=== PATIENT | female | born 1995 | race Caucasian/White ===

== ENCOUNTER 2016-11-26 11:20 | Outpatient (CLI) | payer OTHER ==
[~2016-11-26] VITALS: Ht 157.5 cm; Wt 69.3 kg
[~2016-11-26 11:20] MED LIST: PRENAT PO
[2016-11-26 11:39] VITALS: BP 120/75; PULSE 75; RESP 18; Ht 157.5 cm; Wt 69.3 kg
[2016-11-26] MEDS ORDERED: LACTATED RINGER'S 1,000 ML IV ONE (12:00)
[2016-11-26] MEDS ORDERED: TERBUTALINE 1 MG/ML INJ SC ONE (12:00)
--- NOTE | 2016-11-26 15:40 | TRIAGE ---
OB Triage Datetime Report Generated by CPN: 11/26/2016 15:40 Datetime: 11/26/2016 12:57 Monitor Mode: External Resting Tone [place]: Relaxed Contraction Comments: No UC for last 30 minutes Heart Rate FHR Baseline Rate: 130 Monitor Mode: External US FHR Baseline Changes: No Baseline Change Variability: Moderate 6-25 bpm Accelerations: 15X15 Decelerations: None Category: Category I Datetime: 11/26/2016 12:00 Labor Evaluation Frequency: 2-4 Monitor Mode: External Duration (sec)2399: 50-90 Quality: Moderate Pattern: Normal: <= 5 Contractions in 10 Minutes Resting Tone [place]: Relaxed Heart Rate FHR Baseline Rate: 120 Monitor Mode: External US FHR Baseline Changes: No Baseline Change Variability: Minimal - Undetectable to <=5 bpm Accelerations: 15X15 Decelerations: None Category: Category II Datetime: 11/26/2016 11:45 Assessment Type: Triage Maternal Assessment Level of Consciousness: Fully Conscious DTR's/Clonus: DTRs 2+; No Clonus Headache: Denies Blurred Vision: No Respiratory Effort: Unlabored; Regular Rhythm; Equal Expansion Breath Sounds, Left: Clear and Equal Breath Sounds, Right: Clear and Equal Nausea/Vomiting: Denies RUQ Epigastric Pain: Denies Lower Extremities Edema: Bilateral Lower Extremities Degree: 1+ Upper Extremities Edema: None Degree: None Facial Edema: None Fall Risk Assessment History of Falling: (0) No Secondary Diagnosis: (0) No Ambulatory Aid: (0) Bedrest/Nurse Assist IV Therapy: (0) No Gait: (0) Normal/Bedrest/Immobile Mental Status: (0) Oriented to Own Ability Fall Score: 0 Fall Risk Score Definition: No Risk: No action required Datetime: 11/26/2016 11:43 Vaginal Exam Dilatation (cms): 0.0 Effacement (%): 0 Station: -3 Exam By: TM Datetime: 11/26/2016 11:40 Time of Arrival: 11/26/2016 11:19 EGA: 39.5 Arrived By: Wheelchair Arrived From: Emergency Dept Chief Complaint: UC Movement: Present Contractions: Regular Time Contractions Began: 11/26/2016 08:00 Rupture of Membranes: Denies Vaginal Bleeding: None Vaginal Discharge: Denies Recent Sexual Intercouse: Denies Abdominal Trauma: Not Applicable Patient Complaints: Contractions Time Provider Notified: 11/26/2016 11:47 Provider Notified: Chacorta Initial Plan: NST, IV hydration, Terbutaline 0.25mg SQ x1 Datetime: 11/26/2016 11:37 Stage of : OB Triage Datetime: 11/03/2016 20:03 Fall Score: 0 Fall Risk Score Definition: No Risk: No action required Datetime: 11/03/2016 18:51 Fall Score: 0 Fall Risk Score Definition: No Risk: No action required Datetime: 11/03/2016 18:44 EGA: 36.3
--- NOTE | 2016-11-26 17:34 | PN ---
DATE: The patient is a 21-year-old with contractions, but no vaginal bleeding. Positive movem ent. Vital signs stable. NST is reactive. ASSESSMENT: Intrauterine 39 weeks, vitals stable. The patient can be discharged home. F ollow up with her OB within 1 week. ER precautions given. Dictated By: MINOR MERCHANT MD /RIRI Conf#: [id number] DID#: [id number]
== END 2016-11-26 14:08 | disposition home or self-care (01) ==
LOC: OBT 11:20 → L-D 11:21 → OBT 14:08
PROVIDERS: ATTEND Obstetrics & Gynecology
DX: O62.9 Abnormality of forces of labor, unspecified (principal); Z3A.39 39 weeks gestation of pregnancy
CPT/HCPCS: 36415; 96360; 96372; J3105; J7120; Z7500; G0463

== ENCOUNTER 2016-12-04 00:09 | Inpatient (IN) | payer OTHER ==
[~2016-12-04] VITALS: Ht 158.8 cm; Wt 69.5 kg
[2016-12-04 00:27] VITALS: BP 120/73; PULSE 77; RESP 18
[2016-12-04] MEDS: LACTATED RINGER'S 1,000 ML IV SCH ×2 (00:54→03:54)
--- NOTE | 2016-12-04 00:57 | TRIAGE ---
OB Triage Datetime Report Generated by CPN: 12/04/2016 00:57 Datetime: 12/04/2016 00:31 Vaginal Exam Dilatation (cms): 2.0 Effacement (%): 60 Station: -2 Exam By: SHAKEEL Stevenson Membrane Status: Intact Vaginal Bleeding: None Cervix, Consistency: Moderate Cervix, Position: Posterior Presentation 'A': Cephalic Datetime: 12/04/2016 00:19 Stage of : OB Triage Assessment Type: Triage Maternal Assessment Level of Consciousness: Fully Conscious DTR's/Clonus: DTRs 2+; No Clonus Headache: Denies Blurred Vision: No Respiratory Effort: Unlabored; Regular Rhythm; Equal Expansion Breath Sounds, Left: Clear and Equal Breath Sounds, Right: Clear and Equal Nausea/Vomiting: Hx of Nausea/Vomiting (Annotations: Hx nausea. Denies at this time.) RUQ Epigastric Pain: Denies Lower Extremities Edema: None Degree: None Upper Extremities Edema: None Degree: None Facial Edema: None Temperature Route: Oral Fall Risk Assessment History of Falling: (0) No Secondary Diagnosis: (0) No Ambulatory Aid: (0) Bedrest/Nurse Assist IV Therapy: (0) No Gait: (0) Normal/Bedrest/Immobile Mental Status: (0) Oriented to Own Ability Fall Score: 0 Fall Risk Score Definition: No Risk: No action required Datetime: 12/04/2016 00:18 Maternal Assessment Level of Consciousness: Fully Conscious Headache: Denies Blurred Vision: No Nausea/Vomiting: Denies RUQ Epigastric Pain: Denies Facial Edema: None Labor Evaluation Frequency: plpaced Monitor Mode: External Heart Rate Monitor Mode: External US Comments: [id number] Pain Assessment Pain Scale: 7 Pain Presence: Intermittent Pain Type: Contraction Pain Location: Abdomen Datetime: 12/04/2016 00:12 Time of Arrival: 12/04/2016 00:05 EGA: 39.3 Arrived By: Wheelchair Arrived From: Home Chief Complaint: UCs q5mins Movement: Present Contractions: Regular Time Contractions Began: 12/03/2016 18:00 Contractions: q5mins Rupture of Membranes: Denies Vaginal Bleeding: None Vaginal Discharge: Present Abdominal Trauma: Not Applicable Patient Complaints: Contractions; Cramping; Back Pain Time Provider Notified: 12/04/2016 00:35 Provider Notified: Dr Whatley Initial Plan: EFM x2, VE Datetime: 11/26/2016 11:45 Fall Score: 0 Fall Risk Score Definition: No Risk: No action required Datetime: 11/26/2016 11:40 EGA: 39.5 Datetime: 11/03/2016 20:03 Fall Score: 0 Fall Risk Score Definition: No Risk: No action required Datetime: 11/03/2016 18:51 Fall Score: 0 Fall Risk Score Definition: No Risk: No action required Datetime: 11/03/2016 18:44 EGA: 36.3
[2016-12-04] MEDS ORDERED: LIDOCAINE 1% (MPF) 30 ML INJ INJ PRN (01:00)
[2016-12-04] MEDS ORDERED: CARBOPROST 250 MCG INJ IM PRN ×2 (01:00→15:00)
[2016-12-04] MEDS ORDERED: METHYLERGONOVINE 0.2 MG INJ IM PRN ×2 (01:00→15:00)
[2016-12-04] MEDS ORDERED: OXYTOCIN 30 UNITS/LR 500 ML IV SCH ×3 (01:00)
[2016-12-04] MEDS ORDERED: OXYTOCIN 30 UNITS/LR 500 ML IV PRN ×2 (01:00→15:00)
[2016-12-04] MEDS ORDERED: LACTATED RINGER'S 1,000 ML IV PRN (01:00)
[2016-12-04] MEDS ORDERED: BUTORPHANOL 2 MG INJ IV PRN (01:00)
[2016-12-04] MEDS ORDERED: MISOPROSTOL 200 MCG TAB PR PRN ×2 (01:00→15:00)
[2016-12-04] MEDS ORDERED: IBUPROFEN 600 MG TAB PO PRN (01:00)
[2016-12-04 02:35] LABS: BASOPHIL # 0.1 10^3/ul (0.0-0.1); BASOPHILS % 0.7 % (0.0-2.0); EOSINOPHILS # 0.1 10^3/ul (0.0-0.5); HEMATOCRIT 41.5 % (37.0-47.0); HEMOGLOBIN 14.3 g/dl (12.0-16.0); LYMPHOCYTES # 1.7 10^3/ul (0.8-2.9); LYMPHOCYTES % 15.2 % (15.0-51.0); MEAN CORPUSCULAR HEMOGLOBIN 32.3 pg (29.0-33.0); MEAN CORPUSCULAR HGB CONC 34.3 g/dl (32.0-37.0); MEAN CORPUSCULAR VOLUME 94.1 fl (82.0-101.0); MEAN PLATELET VOLUME 10.1 fl (7.4-10.4); MONOCYTE # 0.8 10^3/ul (0.3-0.9); MONOCYTES % 6.6 % (0.0-11.0); NEUTROPHIL # 8.8 10^3/ul (1.6-7.5); NEUTROPHILS % 76.5 % (39.0-77.0); PLATELET COUNT 191 10^3/UL (140-440); RED BLOOD COUNT 4.41 10^6/ul (4.20-5.40); RED CELL DISTRIBUTION WIDTH 13.2 % (11.5-14.5); UNCORRECTED WBC 11.5 10^3/ul (4.8-10.8); WHITE BLOOD COUNT 11.5 10^3/ul (4.8-10.8)
[2016-12-04 02:46] LABS: INR 0.85; PARTIAL THROMBOPLASTIN TIME 28.6 Sec (25.0-35.0); PROTIME 11.6 Sec (12.2-14.2); PT RATIO 0.9
[2016-12-04 02:52] LABS: CONDITION 1
[2016-12-04] MEDS ORDERED: FENTAnyl 2MCG/ML-ROPIV 0.2% 100 ML ONE (03:01)
[2016-12-04] MEDS ORDERED: NALOXONE (0.4 MG/ML) INJ IV PRN (03:35)
[2016-12-04] MEDS ORDERED: FENTAnyl 2MCG/ML-ROPIV 0.2% 100 ML BAG EPI SCH (03:35)
--- NOTE | 2016-12-04 11:58 | HP ---
Date/Time of Note Date/Time of Note DATE: 12/04/16 TIME: 11:57 OB - History Hx of Present Free Text/Dictation at term in labor Care: Good Care Ultrasounds: Normal mid trimester US Obstetrical Complications: None Medical Complications: None Past Family/Social History * Past Medical, Surgical, Family and Obstetric Histories reviewed from chart. OB Admission Exam Vital Signs Vital Signs Vital Signs Date Time Temp Pulse Resp B/P Pulse Ox O2 Delivery O2 Flow Rate FiO2 12/04/16 00:27 97.7 77 18 120/73 Room Air Physical Exam HEENT: WNL Heart: Rhythm Normal Lungs: Clear, Equal Abdomen: WNL Extremities: Normal Reflexes: Normal Last 72 hours Lab Results CBC & BMP 12/04/16 00:48 OB Assessment/Plan Reason for admission: active labor Plan: Expectant Management DARRELL LEWIS MD Dec 04, 2016 11:58
--- NOTE | 2016-12-04 11:59 | LDN ---
Date/Time of Note Date/Time of Note DATE: 12/04/16 TIME: 11:58 Delivery Summary nsd w/o complications Placenta Delivered: Spontaneously Meconium: none Perineum intact?: No Perineal laceration: 1 Anesthesia type: Epidural Estimated blood loss: 350 Sponge & Needle done & correct: Yes All needle counts correct: Yes Any foreign bodies felt in the: Yes Problems: DARRELL LEWIS MD Dec 04, 2016 11:59
[2016-12-04 14:15] VITALS: BP 119/59; PULSE 20; RESP 20
[2016-12-04] MEDS ORDERED: MAGNESIUM HYDROXIDE 30ML CUP PO PRN (15:00)
[2016-12-04] MEDS ORDERED: ZOLPIDEM 5 MG TAB PO PRN (15:00)
[2016-12-04] MEDS ORDERED: ACETAMINOPHEN/CODEINE #3 TAB PO PRN (15:00)
[2016-12-04] MEDS ORDERED: LANOLIN 7 GM TUBE TOP PRN (15:00)
[2016-12-04] MEDS ORDERED: ACETAMINOPHEN 325 MG TAB PO PRN (15:00)
[2016-12-04] MEDS ORDERED: BENZOCAINE 20% 56 ML SPRAY TOP PRN (15:00)
[2016-12-04] MEDS ORDERED: DIPHENHYDRAMINE 25 MG CAP PO PRN (15:00)
[2016-12-04] MEDS ORDERED: WITCH HAZEL/GLYCERIN PAD PR PRN (15:00)
[2016-12-04] MEDS: OXYTOCIN 30 UNITS/LR 500 ML IV SCH ×3 (15:58→22:00)
[2016-12-04 16:00] VITALS: BP 115/59; PULSE 87; RESP 18
[2016-12-04] MEDS: IBUPROFEN 800 MG TAB PO SCH ×2 (17:27→23:18)
[2016-12-04 19:45] VITALS: BP 117/63; PULSE 99; RESP 18
[2016-12-04] MEDS: LACTATED RINGER'S 1,000 ML IV* SCH (21:11)
[2016-12-04] MEDS: SENNA/DOCUSATE NA (8.6MG/50MG) TAB PO PRN (21:18)
[2016-12-05 04:23] VITALS: BP 113/63; PULSE 65; RESP 18
[2016-12-05] MEDS: IBUPROFEN 800 MG TAB PO SCH ×4 (05:59→23:14)
[2016-12-05] MEDS: LACTATED RINGER'S 1,000 ML IV* SCH (06:33)
[2016-12-05 07:52] LABS: BASOPHILS % 0.3 % (0.0-2.0); EOSINOPHILS # 0.2 10^3/ul (0.0-0.5); HEMOGLOBIN 11.6 g/dl (12.0-16.0); LYMPHOCYTES # 1.6 10^3/ul (0.8-2.9); LYMPHOCYTES % 10.7 % (15.0-51.0); MEAN CORPUSCULAR HEMOGLOBIN 33.2 pg (29.0-33.0); MEAN CORPUSCULAR HGB CONC 35.3 g/dl (32.0-37.0); MEAN CORPUSCULAR VOLUME 93.9 fl (82.0-101.0); MEAN PLATELET VOLUME 9.6 fl (7.4-10.4); MONOCYTE # 0.8 10^3/ul (0.3-0.9); NEUTROPHIL # 12.8 10^3/ul (1.6-7.5); PLATELET COUNT 150 10^3/UL (140-440); RED BLOOD COUNT 3.51 10^6/ul (4.20-5.40); RED CELL DISTRIBUTION WIDTH 13.4 % (11.5-14.5); UNCORRECTED WBC 15.4 10^3/ul (4.8-10.8); WHITE BLOOD COUNT 15.4 10^3/ul (4.8-10.8)
[2016-12-05 07:55] LABS: CONDITION 1
[2016-12-05 08:00] VITALS: BP 106/74; PULSE 76; RESP 20
[2016-12-05] MEDS: SENNA/DOCUSATE NA (8.6MG/50MG) TAB PO PRN (09:08)
[2016-12-05] MEDS ORDERED: INFLUENZA VIRUS VACCINE 0.5 ML SYG IM* ONE (10:00)
[2016-12-05 15:30] VITALS: BP 115/60; PULSE 84; RESP 20
--- NOTE | 2016-12-05 16:57 | PN ---
Date/Time of Note Date/Time of Note DATE: 12/05/16 TIME: 16:57 Assessment/Plan VTE Prophylaxis VTE Prophylaxis Intervention: ambulation Lines/Catheters IV Catheter Type (from Nrsg): Peripheral IV Assessment/Plan Assessment/Plan ppd1 pt doing well exam wnl continue care Exam/Review of Systems Vital Signs Vitals Vital Signs Date Time Temp Pulse Resp B/P Pulse Ox O2 Delivery O2 Flow Rate FiO2 12/05/16 15:30 98.0 84 20 115/60 Room Air Intake and Output 12/04/16 12/04/16 12/05/16 15:00 23:00 07:00 Intake Total 1350 ml 730 ml Output Total 1840 ml 1050 ml Balance -490 ml -320 ml Results Result Diagram: 12/05/16 0646 Results 24 hrs Laboratory Tests Test 12/05/16 06:46 Basophils # 0.0 Basophils % 0.3 Eosinophils # 0.2 Eosinophils % 1.0 Hematocrit 33.0 #L Hemoglobin 11.6 L Lymphocytes # 1.6 Lymphocytes % 10.7 L Mean Corpuscular Hemoglobin 33.2 H Mean Corpuscular Hemoglobin Concent 35.3 Mean Corpuscular Volume 93.9 Mean Platelet Volume 9.6 Monocytes # 0.8 Monocytes % 5.0 Neutrophils # 12.8 H Neutrophils % 83.0 H Nucleated Red Blood Cells # 0.0 Nucleated Red Blood Cells % 0.0 Platelet Count 150 # Red Blood Count 3.51 #L Red Cell Distribution Width 13.4 White Blood Count 15.4 #H Medications Medications Current Medications Ibuprofen (Motrin) 800 mg Q6 PO Last administered on 12/05/16 11:42; Admin Dose 800 MG; Start 12/04/16 at 18:00 Acetaminophen/ Codeine Phosphate (Tylenol No.3) 2 tab Q4H PRN PO PAIN LEVEL 6- 10 Last administered on 12/04/16 19:52; Admin Dose 2 TAB; Start 12/04/16 at 15: 00 Diphenhydramine HCl (Benadryl) 25 mg Q6H PRN PO PRURITUS; Start 12/04/16 at 15: 00 Zolpidem Tartrate (Ambien) 10 mg QHS PRN PO INSOMNIA; Start 12/04/16 at 15:00 Senna/Docusate Sodium (Senokot-S) 1 tab BID PRN PO CONSTIPATION Last administered on 12/05/16t 09:08; Admin Dose 1 TAB; Start 12/04/16 at 15:00 Magnesium Hydroxide (Milk Of Mag) 30 ml Q12H PRN PO CONSTIPATION; Start at 15:00 Measles/Mumps/ Rubella Vaccine Live (Mmr Ii Vaccine) 0.5 ml ONCE ONCE SC* ; Start 12/06/16 at 09:00; Stop 12/06/16 at 09:01 Diphtheria/ Tetanus/Acell Pertussis (Adacel) 0.5 ml ONCE ONCE IM* ; Start at 09:00; Stop 12/06/16 at 09:01 Varicella Virus Vaccine Live (Varivax Vaccine With Diluent) 1,350 unit ONCE ONCE SC* ; Start 12/06/16 at 09:00; Stop 12/06/16 at 09:01 Acetaminophen 650 mg 650 mg Q4H PRN PO ELEVATED TEMPERATURE; Start 12/04/16 at 15:00 Oxytocin/Lactated Ringer's 500 ml @ 0 mls/hr ONCE PRN IV For Hemorrhage Management; Start 12/04/16 at 15:00 Methylergonovine Maleate (Methergine) 0.2 mg ONCE PRN IM VAGINAL BLEEDING; Start 12/04/16 at 15:00 Carboprost Tromethamine (Hemabate) 250 mcg ONCE PRN IM VAGINAL BLEEDING; Start 12/04/16 at 15:00 Misoprostol (Cytotec) 1,[address] VAGINAL BLEEDING; Start 12/04/16 at 15:00 MINOR MERCHANT MD Dec 05, 2016 16:57
[2016-12-05 19:40] VITALS: BP 114/57; PULSE 80; RESP 18
[2016-12-06 03:46] VITALS: BP 114/57; PULSE 73; RESP 18
[2016-12-06] MEDS: IBUPROFEN 800 MG TAB PO SCH ×2 (05:41→11:41)
[2016-12-06 08:20] VITALS: BP 113/56; PULSE 87; RESP 20
[2016-12-06] MEDS ORDERED: MEASLES,MUMPS,RUBELLA VACCINE INJ SC* ONE (09:00)
[2016-12-06] MEDS ORDERED: VARICELLA VACCINE LIVE/PF 1,350 UNIT/0.5 ML ML SC* ONE (09:00)
[2016-12-06] MEDS ORDERED: DIPHTH/TET/ACEL PERTUSS (ADULT) 0.5 ML VIAL IM* ONE (09:00)
--- NOTE | 2016-12-06 14:03 | DS ---
Date/Time of Note Date/Time of Note DATE: 12/06/16 TIME: 14:02 Discharge Summary Admission/Discharge Info Admit Date/Time Dec 04, 2016 at 00:40 Discharge Date/Time Final Diagnosis TERM PREG Hospital Course UNREMARKABLE Home Meds Reported Medications Multivit/Min/Fol Ac/Iron/Pren* ( S*) 1 Tab Tab, 1 TAB PO DAILY, TAB 11/03/16 DARRELL LEWIS MD Dec 06, 2016 14:03
[2016-12-07] MEDS ORDERED: INFLUENZA VIRUS VACCINE 0.5 ML SYG IM* ONE (09:00)
== END 2016-12-06 17:41 | disposition home or self-care (01) | DRG 775 ==
LOC: OBT 00:09 → L-D 00:10 → OBT 00:39 → L-D 00:40 → PP1 13:06
PROVIDERS: ADMIT Obstetrics & Gynecology; ATTEND Obstetrics & Gynecology
PROC: 10E0XZZ Delivery of Products of Conception, External Approach (ICD-10-PCS; principal; 2016-12-04)
PROC: 3E00X4Z Introduction of Serum, Toxoid and Vaccine into Skin and Mucous Membranes, External Approach (ICD-10-PCS; 2016-12-06)
DX: O80 Encounter for full-term uncomplicated delivery (principal); Z23 Encounter for immunization; Z3A.39 39 weeks gestation of pregnancy; Z37.0 Single live birth
CPT/HCPCS: 36415; 62319; 85025; 85610; 85730; 86592; 86850; 86885; 86900; 86901; 87340; 90686; 90715; 90716; G0463; J2590; J2790; J3010; J7120